=== PATIENT | female | born 1980 | race American Indian/Alaskan Native ===

== ENCOUNTER 2019-05-24 16:36 | Emergency (ER) | payer SELFPAY ==
--- NOTE | 2019-05-24 17:11 | Event Note ---
ED Screening Note Date of service: 05/24/19 Time: 17:06 ED Screening Note: 39 y/o female comes in reports that she needs help having blisters on her feet no where to go. Chest pain. This initial assessment/diagnostic orders/clinical plan/treatment(s) is/are subject to change based on patients health status, clinical progression and re- assessment by fellow clinical providers in the ED. Further treatment and workup at subsequent clinical providers discretion. Patient/guardian urged not to elope from the ED as their condition may be serious if not clinically assessed and managed. Initial orders include:
[2019-05-24 17:27] LABS: Bacteria,Urine 1+ /HPF (Negative); Bilirubin,Urine NEG (Negative); Blood,Urine NEG (Negative); Color,Urine Straw (Yellow); Protein,Urine <15 mg/dL mg/dL (Negative); Urobilinogen,Urine < 2.0 mg/dL (<2.0)
[2019-05-24 17:31] LABS: Basophils % (Auto) 0.6 % (0.0-1.8); Eosinophils # (Auto) 0.4 K/mm3 (0.0-0.4); Eosinophils % (Auto) 6.2 % (0.0-4.3); Hematocrit 33.4 % (30.3-42.9); Hemoglobin 11.8 gm/dl (10.1-14.3); Lymphocytes # (Auto) 1.4 K/mm3 (1.2-5.4); Lymphocytes % (Auto) 23.8 % (13.4-35.0); Mean Corpuscular HGB Conc 35 % (30-34); Mean Corpuscular Volume 97 fl (79-97); Monocytes # (Auto) 0.4 K/mm3 (0.0-0.8); Monocytes % (Auto) 6.6 % (0.0-7.3); Platelet Count 185 K/mm3 (140-440); Red Blood Count 3.45 M/mm3 (3.65-5.03); Red Cell Distribution Width 12.7 % (13.2-15.2)
[2019-05-24 17:36] LABS: Amphetamine Screen,Urine PRESUMPTIVE NEGATIVE; Benzodiazepines Screen,Urine PRESUMPTIVE NEGATIVE; Cocaine Screen,Urine PRESUMPTIVE NEGATIVE; Methadone Screen,Urine PRESUMPTIVE NEGATIVE
[2019-05-24 17:48] LABS: Cannabinoid Screen,Urine PRESUMPTIVE POSITIVE; Opiate Screen,Urine PRESUMPTIVE POSITIVE
[2019-05-24 17:52] LABS: Alanine Aminotransferase 22 units/L (7-56); Albumin 3.8 g/dL (3.9-5); BUN/Creatinine Ratio 8; Blood Urea Nitrogen 6 mg/dL (7-17); Calcium 9.5 mg/dL (8.4-10.2); Hemolysis Index 3
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
[2019-05-24 18:11] VITALS: BP 121/63
== END 2019-05-24 18:57 | disposition home or self-care (01) ==
LOC: ED 16:36
DX: M79.10 Myalgia, unspecified site (principal); R07.89 Other chest pain; I50.9 Heart failure, unspecified; K21.9 Gastro-esophageal reflux disease without esophagitis; F32.9 Major depressive disorder, single episode, unspecified; F41.9 Anxiety disorder, unspecified; F17.200 Nicotine dependence, unspecified, uncomplicated; F12.10 Cannabis abuse, uncomplicated; Z59.0 Homelessness; Z79.899 Other long term (current) drug therapy
CPT/HCPCS: 36415; 80053; 80307; 81001; 83690; 84484; 85025; 93005; 93010

== ENCOUNTER 2019-05-25 12:36 | Emergency (ER) | payer SELFPAY ==
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
[2019-05-25 12:56] VITALS: BP 128/79
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
== END 2019-05-25 14:34 | disposition home or self-care (01) ==
LOC: ED 12:36
DX: F41.9 Anxiety disorder, unspecified (principal); R19.7 Diarrhea, unspecified; I50.9 Heart failure, unspecified; K21.9 Gastro-esophageal reflux disease without esophagitis; F32.9 Major depressive disorder, single episode, unspecified; F17.200 Nicotine dependence, unspecified, uncomplicated; Z88.6 Allergy status to analgesic agent

== ENCOUNTER 2019-06-02 12:21 | Emergency (ER) | payer OTHER ==
[2019-06-02 12:29] VITALS: BP 109/76
--- NOTE | 2019-06-02 12:29 | Event Note ---
ED Screening Note Date of service: 06/02/19 Time: 12:27 ED Screening Note: This is a 39 y.o. F. that presents to the ER with right sided rib pain s/p fall 2 days ago. Current smoker PMH CHF & HTN LMP 05/16/2019 This initial assessment/diagnostic orders/clinical plan/treatment(s) is/are sub ject to change based on patients health status, clinical progression and re- assessment by fellow clinical providers in the ED. Further treatment and workup at subsequent clinical providers discretion. Patient/guardian urged not to elope from the ED as their condition may be serious if not clinically assessed and managed. Initial orders include: XR right ribs
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
--- NOTE | 2019-06-02 13:01 | XRay Report ---
RIGHT RIB DETAILS, 2 VIEWS 06 02 2019 INDICATION / CLINICAL INFORMATION: rib pain s/p fall, r/o fracture. COMPARISON: None available. FINDINGS: Healed 9th and 10th left rib fractures are identified. There are no acute displaced fractures identified. Slight blunting of the right lateral costophrenic angle is noted. No acute pulmonary disease or pneumothorax. Signer Name: Sid Mejia MD Signed: 06/02/2019 12:56 PM Workstation Name: [id number]
== END 2019-06-02 13:12 | disposition home or self-care (01) ==
LOC: ED 12:21
DX: S20.211A Contusion of right front wall of thorax, initial encounter (principal); I50.9 Heart failure, unspecified; K21.9 Gastro-esophageal reflux disease without esophagitis; F32.9 Major depressive disorder, single episode, unspecified; F41.9 Anxiety disorder, unspecified; F17.200 Nicotine dependence, unspecified, uncomplicated; Z79.899 Other long term (current) drug therapy; Z88.8 Allergy status to other drugs, medicaments and biological substances; W08.XXXA Fall from other furniture, initial encounter; Y93.89 Activity, other specified; Y92.89 Other specified places as the place of occurrence of the external cause; Y99.8 Other external cause status